=== PATIENT | male | born 1975 | race Caucasian/White ===

== ENCOUNTER 2018-03-24 15:43 | Emergency (ER) | payer MEDICAID ==
[~2018-03-24] VITALS: Ht 180.3 cm; Wt 136.1 kg
[2018-03-24 16:24] VITALS: BP 113/77
--- NOTE | 2018-03-24 16:30 | NUR ---
PT STABLE TO WAIT IN LOBBY , INFORMED TO NOTIFY STAFF IMMMEDIATELY IF THERE IS ANY CHANGE IN CONDITON.
--- NOTE | 2018-03-24 18:33 | NUR ---
VITALS RE-TAKEN. PT STABLE TO WAIT IN LOBBY.
--- NOTE | 2018-03-24 19:27 | NUR ---
PATIENT AMBULATED TO ER BED 8
--- NOTE | 2018-03-24 19:28 | NUR ---
PATIENT PRESENTS TO ED WITH C/O ARM PAIN, SINCE YESTERDAY. PT STATES HE WAS WALKING BY FENCE NEAR A CONSTRUCTION SITE WHERE A PROTRUDING PART OF THE FENCE STRUCK HIS RIGHT FOREARM. THERE IS A SMALL WOUND NOTED TO THE RIGHT FOREARM IN ITS HEALING PHASE, NO BLEEDING NOTED, SWELLING AND ERYTHEMA TO THE SITE. PT STATES HIS TETANUS IS POSSIBLY MORE THEN 10 YEARS. PT DENIES N/V/D; PT GCS 15, AAOX4 WITH EVEN AND STEADY GAIT; LUNGS CLEAR BL; HR EVEN AND REGULAR; PT DENIES ANY FEVER, CP, SOB, OR COUGH AT THIS TIME; PATIENT STATES PAIN OF 10/10 AT THIS TIME; VSS; PATIENT POSITIONED FOR COMFORT; HOB ELEVATED; BEDRAILS UP X2; BED DOWN. ER MD MADE AWARE OF PT STATUS.
--- NOTE | 2018-03-24 19:54 | NUR ---
Patient being evaluated by physician at bedside.
[2018-03-24 20:46] VITALS: BP 135/78
--- NOTE | 2018-03-24 20:46 | NUR ---
Patient discharged with v/s stable. Written and verbal after care instructions given and explained. Patient alert, oriented and verbalized understanding of instructions. Ambulatory with steady gait. All questions addressed prior to discharge. ID band removed. Patient advised to follow up with PMD. Rx of MOTRIN AND BACTRIM given. Patient educated on indication of medication including possible reaction and side effects. Opportunity to ask questions provided and answered.
== END 2018-03-24 20:46 | disposition home or self-care (01) ==
LOC: MED 15:43
DX: S51.831A Puncture wound without foreign body of right forearm, initial encounter (principal); Z88.0 Allergy status to penicillin; Z88.1 Allergy status to other antibiotic agents; W26.8XXA Contact with other sharp object(s), not elsewhere classified, initial encounter; Y93.01 Activity, walking, marching and hiking; Y92.89 Other specified places as the place of occurrence of the external cause; Y99.8 Other external cause status
CPT/HCPCS: 90471; 90715; 99283